=== PATIENT | female | born 1975 | race Caucasian/White ===

== ENCOUNTER 2025-02-21 13:48 | Inpatient (IN) ==
--- NOTE | 2025-02-21 14:12 | Emergency Department Note ---
Impression & Plan Symptomatic anemia, Vaginal bleeding, Near syncope ED Provider Note NAME: JESUS ALBERTO SANCHEZ AGE: 49 SEX: F : 1975 ARRIVES VIA: Walk-In INFORMANT: Patient, ED PROVIDER(S): Triston Yousif DO CHIEF COMPLAINT: Weakness HPI: The patient is a 49-year-old female who presented to the emergency department at the request of her primary care physician. The patient was noticing that she was having a much heavier period than usual. The patient does normally take oral anticoagulants because of a history of factor V. The patient was seen at an outside facility yesterday. She was noted to have a very low hemoglobin but her vital signs were stable and the patient ultimately was discharged to home. She called her family doctor today and was instructed to come to our emergency department for further evaluation. The patient complains of generalized weakness as well as near syncope. She denies having any chest pain or difficulty breathing. She last took her oral anticoagulant yesterday. ROS: See above HPI for pertinent positives & negatives. A total of 10 systems reviewed and were otherwise negative. PAST MEDICAL HISTORY: See Below PAST SURGICAL HISTORY: See Below FAMILY HISTORY: See Below SOCIAL HISTORY: See Below HOME MEDICATIONS: See Below ALLERGIES: See Below VITALS: See Below PHYSICAL EXAMINATION: GENERAL: Patient is awake alert in no acute distress patient is resting comfortably and showing no signs of anxiety EYES: The conjunctivae are clear. The pupils are round and reactive. EARS, NOSE, MOUTH AND THROAT: The nose is without any evidence of any deformity. NECK: The neck is nontender and supple. RESPIRATORY: Normal respiratory effort is noted there is no evidence of wheezing rhonchi or rales CARDIOVASCULAR: Regular rate and rhythm noted there no murmurs rubs or gallops normal S1 normal S2. GASTROINTESTINAL: The abdomen is soft. Abdomen is nontender. MUSCULOSKELETAL/EXTREMITIES: There is no evidence of gross deformity full range of motion is noted in the hips and shoulders. SKIN: There is no obvious evidence of any rash. There are no petechiae, pallor or cyanosis noted. NEUROLOGIC: Patient is awake alert and oriented x3 MEDICAL DECISION MAKING: The patient is a 49-year-old female who presented to the emergency department for near syncope. 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 The patient was seen at [facility] last evening. She was found to be anemic but was able to be discharged home. She followed up with her doctor and was sent to our emergency department today for further evaluation as well as possible blood transfusion. I discussed the patient's laboratory and radiographic studies with her. Vital signs are reassuring but her hemoglobin is still in the 7 range. She is very symptomatic with standing up. I do feel that she may be a candidate for blood transfusion at this time. I discussed her condition with the on-call [facility]. They have agreed to evaluate the patient in the emergency department for further management and disposition. The patient's previous hemoglobin was over 10. Triage Nursing notes reviewed. Prior medical records reviewed Vital Signs: reviewed and remarkable for no significant abnormalities Differential diagnosis: Infection, dehydration, metabolic abnormality, hypo/hyperglycemia, electrolyte disturbance, anemia, hypoxia, cardiac sources, intracerebral event, toxicologic, neurologic, as well as other pathologies. ER treatment provided: See below Diagnostics interpreted by me: ECG: EKG was obtained at emergency department. My interpretation is normal sinus rhythm at 84 bpm. There is no ectopy. There is no acute ST segment abnormalities noted. QTc was 439 ms. Cardiac Monitoring: An order was placed for continuous cardiac monitoring. The monitor shows a rate of 79 bpm with sinus rhythm. Laboratory studies: As stated above and show below. Imaging studies: See below. Radiographic imaging was reviewed by myself Consultation(s): I discussed this case with the Ashly who is on-call for the [facility]. Past Med/Surg History Problem List (Updated 02/21/25 @ 16:07 by Triston Yousif DO) Near syncope (Acute) Vaginal bleeding (Acute) Symptomatic anemia (Acute) Medical History (Updated 02/21/25 @ 16:07 by Triston Yousif DO) DVT (deep venous thrombosis) Factor V deficiency Social History Smoking Status: Never smoker Preferred Language: Emirati Feels Safe at Home: Yes Allergies Allergies Allergy/AdvReac Type Severity Reaction Status Date / Time No Known Allergies Allergy Unverified 02/21/25 16:03 Home Meds Home Medications Medication Instructions Recorded Confirmed apixaban 5 mg tablet 5 mg PO BID 02/21/25 02/21/25 budesonide-formoterol HFA 80 1 inh inhalation BID 02/21/25 02/21/25 mcg-4.5 mcg/actuation aerosol inhaler norethindrone acetate 5 mg tablet 5 mg PO QAM 02/21/25 02/21/25 Results & Data (ED) Vital Signs Vital Signs - 24 hr 02/21/25 13:56 02/21/25 14:32 02/21/25 14:32 Temperature 36.4 C L Temperature Source Temporal Artery Scan Pulse Rate 92 H 85 Pulse Rate [Right Finger] 86 Respiratory Rate 17 18 18 Respiratory Effort / Characteristics Non-Labored Spontaneous Respiratory Depth Normal Respiratory Pattern Regular Blood Pressure 117/77 Blood Pressure [Right Arm] 114/77 Blood Pressure Mean 90 Blood Pressure Mean [Right Arm] 89 Pulse Oximetry 100 100 100 Oxygen Delivery Method Room Air Room Air Room Air Sepsis Recent Fever Within 48 Hours No Sepsis New/Unexplained Change in Mental Status N/A Sepsis Action Taken by Nursing No Action Required 02/21/25 15:11 Temperature Temperature Source Pulse Rate 79 Pulse Rate [Right Finger] Respiratory Rate Respiratory Effort / Characteristics Respiratory Depth Respiratory Pattern Blood Pressure Blood Pressure [Right Arm] Blood Pressure Mean Blood Pressure Mean [Right Arm] Pulse Oximetry Oxygen Delivery Method Sepsis Recent Fever Within 48 Hours Sepsis New/Unexplained Change in Mental Status Sepsis Action Taken by Snf Medications Current Medication List: was personally reviewed by me Laboratory Data Attestation: I reviewed the patient's lab results. 02/21/25 14:20 02/21/25 14:20 Lab Results 02/21/25 02/21/25 Range/Units 14:20 14:28 WBC 5.26 (4.8-10.8) K/ul RBC 3.82 L (4.20-5.40) M/uL Hgb 7.6 L (12.0-16.0) g/dl POC Hgb 8.8 L (12.0-16.0) g/dl Hct 25.6 L (37.0-47.0) % POC Hct 26 L (37-47) % MCV 67.0 L (80.0-100.0) fL MCH 19.9 L (25.0-34.0) pg MCHC 29.7 L (32.0-36.0) g/dL RDW Std Deviation 39.9 (36.4-46.3) fL RDW Coeff of Karen 16.7 H (11.5-14.5) % Plt Count 285 (130-400) K/uL MPV 9.7 (9.4-12.4) fL Immature Gran % (Auto) 0.2 % Neut % (Auto) 59.7 % Lymph % (Auto) 20.3 % Grainger % (Auto) 8.6 % Eos % (Auto) 9.3 % Baso % (Auto) 1.9 % Neut # (Auto) 3.14 (1.40-6.50) K/uL Lymph # (Auto) 1.07 L (1.20-3.40) K/uL Grainger # (Auto) 0.45 (0.11-0.59) K/uL Eos # (Auto) 0.49 (0.00-0.50) K/uL Baso # (Auto) 0.10 (0.00-0.20) K/uL Immature Gran # (Auto) 0.01 (0.01-0.20) K/uL Polychromasia 1+ Microcytosis Present Ovalocytes 2+ PT 10.3 (9.0-12.0) Seconds INR 1.0 (0.9-1.1) APTT 20 L (21-31) Seconds PTT Ratio 0.7 POC Sodium 143 (135-144) mmol/L Sodium 140 (136-145) mmol/L POC Potassium 3.4 (3.3-5.0) mmol/L Potassium 3.4 L (3.5-5.1) mmol/L POC Chloride 104 (101-112) mmol/L Chloride 107 (98-107) mmol/L Carbon Dioxide 27 (21-32) mmol/L POC Total CO2 24 (24-31) mmol/L Anion Gap 6 (3-11) POC Anion Gap 19.0 (16-25) mmol/L POC BUN 6 L (7-18) mg/dl BUN 8 (6-23) mg/dl Creatinine 0.79 (0.6-1.2) mg/dl POC Creatinine 1.0 (0.6-1.3) mg/dl Est Cr Clr Drug Dosing 87.6 ml/min eGFR 92.79 BUN/Creatinine Ratio 10.1 (10-20) Glucose 92 (70-99(Fasting)) mg/dl POC Glucose (other) 89 (70-99) mg/dl Calcium 8.5 L (8.6-10.3) mg/dl POC Ioniz Calcium Marivel 1.08 L (1.12-1.32) mmol/l Total Bilirubin 0.4 (0.2-1.0) mg/dl AST 20 (13-39) U/L ALT 20 (7-52) U/L Alkaline Phosphatase 28 L (34-104) U/L Troponin I High Sens < 2.3 (0-14) pg/ml Total Protein 6.7 (6.0-8.3) gm/dl Albumin 3.9 (3.4-5.0) gm/dl Globulin 2.8 (2.5-4.0) gm/dl Albumin/Globulin Ratio 1.4 (0.9-2) Lipase 28 (11-82) U/L HCG, Qual Negative (Negative) Imaging Data Attestation: I personally reviewed and interpreted this imaging study as follows: My Impression: 1 view chest x-ray was obtained in the emergency department. My interpretation is no free air or definite infiltrate, final report below. Radiologist's Impression: Chest X-Ray 02/21/25 14:01 XR chest 1V portable CLINICAL HISTORY: Chest pain, nonspecific COMPARISON STUDY: None FINDINGS: Heart size and pulmonary vasculature are normal. No consolidation or pleural effusion. No pneumothorax. IMPRESSION: No acute findings. ACT 112: Negative or not required by law. Electronically signed by: Stiven Parker M.D. 02/21/2025 3:02 PM Discharge Plan Visit Data Chief Complaint: Abnormal Labs/Diagnostic Testing Stated Complaint: CHECK BLOOD COUNT, SEEN 02/20 AT [facility] ED Provider: Triston Yousif Discharge Problem: Symptomatic anemia, Vaginal bleeding, Near syncope Patient Disposition: Being Evaluated by Hospitalist Condition: Fair Forms Stand Alone Forms: My [facility] Prescriptions Prescriptions: No Action norethindrone acetate 5 mg tablet 5 mg PO QAM budesonide-formoterol 80-4.5 mcg/actuation HFA aerosol inhaler 1 inh INHALATION BID apixaban 5 mg Tablet 5 mg PO BID Referrals Referrals: PCP,NO [Primary Care Provider] -
[2025-02-21 14:43] LABS: Hematocrit (blood only) 25.6 % (37.0-47.0); Hemoglobin 7.6 g/dl (12.0-16.0); Immature Granulocytes # (auto) 0.01 K/uL (0.01-0.20); Immature Granulocytes % (auto) 0.2 %; Mean Corpuscular Hemoglobin 19.9 pg (25.0-34.0); Mean Corpuscular Volume 67.0 fL (80.0-100.0); RDW Standard Deviation 39.9 fL (36.4-46.3); Red Blood Count 3.82 M/uL (4.20-5.40); White Blood Count 5.26 K/ul (4.8-10.8)
[2025-02-21 14:50] LABS: Platelet Count 285 K/uL (130-400)
[2025-02-21 14:59] LABS: Alanine Aminotransferase 20 U/L (7-52); Albumin Globulin Ratio 1.4 (0.9-2); Albumin Level 3.9 gm/dl (3.4-5.0); Alkaline Phosphatase 28 U/L (34-104); Anion Gap 6 (3-11); Bilirubin,Total 0.4 mg/dl (0.2-1.0); Blood Urea Nitrogen 8 mg/dl (6-23); Calcium 8.5 mg/dl (8.6-10.3); Carbon Dioxide 27 mmol/L (21-32); Chloride 107 mmol/L (98-107); Creatinine Clr Calc Pharmacy 87.6 ml/min; Globulin 2.8 gm/dl (2.5-4.0); Glucose 92 mg/dl (70-99(Fasting)); Lipase 28 U/L (11-82); Potassium 3.4 mmol/L (3.5-5.1); Sodium 140 mmol/L (136-145); Total Protein 6.7 gm/dl (6.0-8.3)
--- NOTE | 2025-02-21 15:03 | XRay Report ---
XR chest 1V portable CLINICAL HISTORY: Chest pain, nonspecific COMPARISON STUDY: None FINDINGS: Heart size and pulmonary vasculature are normal. No consolidation or pleural effusion. No p neumothorax. IMPRESSION: No acute findings. ACT 112: Negative or not required by law. Electronically signed by: Stiven Parker M.D. 02/21/2025 3:02 PM
[2025-02-21 15:13] LABS: INR 1.0 (0.9-1.1); Partial Thromboplastin Time 20 Seconds (21-31); Prothrombin Time 10.3 Seconds (9.0-12.0)
[2025-02-21 15:23] LABS: Microcytosis Present; Ovalocytes 2+; Polychromasia 1+
[2025-02-21 15:24] LABS: Pregnancy Test, Serum Negative (Negative)
--- NOTE | 2025-02-21 15:40 | Electrocardiogram Report ---
Test Reason : Blood Pressure : */* mmHG Vent. Rate : 84 BPM Atrial Rate : 84 BPM P-R Int : 126 ms QRS Dur : 76 ms QT Int : 372 ms P-R-T Axes : 40 47 37 degrees QTcB Int : 439 ms Normal sinus rhythm Low voltage QRS Nonspecific ST abnormality Abnormal ECG No previous ECGs available Confirmed by Triston Celeste ([id number]) on 02/21/2025 3:40:29 PM Referred By: Confirmed By: Triston Celeste
--- NOTE | 2025-02-21 16:22 | History & Physical Report ---
Date of Service February 21, 2025 Assessment & Plan (1) Menorrhagia: (2) Symptomatic anemia: (3) Factor V deficiency: (4) DVT (deep venous thrombosis): Plan Ms. Morejon is a 49 year old [employer] female who presented to the ED with weakness and a low Hgb of 7.6. She has a complex hematological history. She underwent a hernia repair 5 months ago and developed her first DVT postop and was started on Eliquis for a few months. Unfortunately she developed a subsequent DVT on March 19 and was restarted on Eliquis. Separately she has been on control pills (norethindrone acetate) for 5 months as well for persistent menorrhagia. Additionally she was diagnosed with factor V Leiden last Thursday as well. She reports that she started her menses on Sunday 02/18 and reportedly is bleeding heavier than normal with reports of saturation of 3-4 pads every few hours. She was evaluated at the [facility] last evening and her Hgb was 7.7. A TVUS was performed revealing leiomyomas. Pt will be admitted for further evaluation and management of her menorrhea, symptomatic anemia, coagulopathy. Will trend hemoglobin, add anemia panel to assess iron deficiency, replace potassium and will consult hematology and gynecology for insight. Symptomatic anemia: Likely ISO of menorrhagia/vaginal bleeding. Patient has been dealing with this for a few months Takes BCP's for the last 5 months given increased bleeding during menses Hemoglobin currently 7.6; baseline 10-12; repeat Hgb 7.1 Has an appointment with gynecology on Thursday regarding possibility of having a hysterectomy Discussed on the phone with Dr. Chavarria with gynecology. 1UPRBC ordered. Repeat Hgb 2300. Reportedly bleeding 3-4 pads every few hours over the past few days with a lot of clots Was seen at [facility] on 02/20 in the evening; TVUS performed revealing leiomyomas Type and screen completed; Blood consent obtained Hold anticoagulation; Teds and SCDs for now Anemia panel ordered NPO post MN Consult hematology and gynecology Factor V Leiden Deficiency: Recently diagnosed last week Does not follow with hematology Hematology consult given complicating factors of recurrent clots and bleeding may need to consider FFP given Factor V; however need to consider hypercoagulable state with reccurent DVT 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 Hold anticoagulation for now given menorrhagia and symptomatic anemia Hematology consult Hypokalemia: Serum K+ 3.4; replace with 40 PO and trend in AM No ectopy on monitor . Disposition: PCP: Dr. Christian Meneses; private practice Code status: Full Code VTE Prophylaxis: Teds and SCDs for now I spent a total of 82 minutes coordinating, documenting, and providing care for this patient excluding time spent inthe performance of separately billed services or time spent by another provider/QHP. History of Present Illness Chief Complaint: Symptomatic anemia Primary Care Provider: NO PCP Ms. Morejon is a 49 year old [employer] female who presented to the ED with weakness and a low Hgb of 7.6. She has a complex hematological history. She underwent a hernia repair 5 months ago and developed her first DVT postop and was started on Eliquis for a few months. Unfortunately she developed a subsequent DVT on March 19 and was restarted on Eliquis. Separately she has been on control pills (norethindrone acetate) for 5 months as well for persistent menorrhagia. additionally she was diagnosed with factor V Leiden last Thursday as well. She reports that she started her menses on Sunday 02/18 and reportedly is bleeding heavier than normal with reports of saturation of 3-4 pads every few hours. She was evaluated at the [facility] last evening and her Hgb was 7.7. A TVUS was performed revealing leiomyomas. . Per patient and EMR review patient is to have a follow-up appointment with her lay midwife on Thursday as they have been having conversation about a possible hysterectomy given all the complication she has been having around her menses. In the ED today her hemoglobin is 7.6; baseline from 2023 is 10-12. hCG negative, otherwise labs unremarkable. Slight hypokalemia 3.4. Patient denies tobacco, alcohol or recreational drug use. Patient denies headache, shortness of breath, chest pain, abdominal pain or tenderness, nausea, vomiting, diarrhea, recent falls or trauma. On examination, patient is AO x 4, well-nourished and in no acute distress. She is able to speak in complete sentences without desaturation and does not appear to be winded. She is normotensive. She does report feeling dizzy when she does ambulate. Pt will be admitted for further evaluation and management of her menorrhea, symptomatic anemia, coagulopathy. Type and cross has been completed and consent obtained. Will trend hemoglobin, add anemia panel to assess iron deficiency, replace potassium and will consult hematology and gynecology for insight. Please see A/P for further details. Allergies Allergy/AdvReac Type Severity Reaction Status Date / Time No Known Allergies Allergy Unverified 02/21/25 16:03 Home Medications Medication Instructions Recorded Confirmed Type apixaban 5 mg tablet 5 mg PO BID 02/21/25 02/21/25 History budesonide-formoterol HFA 80 1 inh inhalation BID 02/21/25 02/21/25 History mcg-4.5 mcg/actuation aerosol inhaler norethindrone acetate 5 mg tablet 5 mg PO QAM 02/21/25 02/21/25 History Past Med/Surg History Problem List (Updated 02/21/25 @ 17:21 by MIKE Martinez) Menorrhagia Near syncope (Acute) Vaginal bleeding (Acute) Symptomatic anemia (Acute) Medical History DVT (deep venous thrombosis) Factor V deficiency Social History Smoking Status: Never smoker Preferred Language: Vincentian Feels Safe at Home: Yes Review of Systems Review of Systems: Neuro: (-) Falls, trauma, slurred speech HEENT: (-) SIN, (+) dizziness, (-) dysphagia, visual or auditory changes CV: (-) CP, palpitations, swelling Resp: (-) SOB GI: (-) appetite changes, N/V/D, bowel changes : (-) urinary changes Skin: (-) rashes Psych: (-) anxiety, depression Physical Exam Physical Exam: Neuro: AAOx4, PERRLA, no aphagia, memory changes, CNII-XII grossly intact HEENT: head normocephalic, moist mucus membranes CV: S1/S2, (-) M/G/R, (-) edema, cap refill < 3 seconds Resp: Lungs CTA in all padilla. On RA GI: Abdomen S/NT/ND, Ax4 bowel sounds, (-) CVA tenderness Musculoskeletal: 5/5 B/L UE strength, 5/5 B/L LE strength. No gait disturbance Skin: (-) rashes , (-) erythema. Psych: euthymic mood Results & Data Results & Data Vital Signs (Past 12 Hours) Vital Signs Temp Pulse Pulse Resp BP BP Pulse Ox 02/21/25 16:00 80 16 114/77 99 02/21/25 15:11 79 02/21/25 14:32 85 18 100 02/21/25 14:32 86 18 114/77 100 02/21/25 13:56 36.4 C L 92 H 17 117/77 100 O2 Del Method 02/21/25 16:00 Room Air 02/21/25 15:11 02/21/25 14:32 Room Air 02/21/25 14:32 Room Air 02/21/25 13:56 Room Air Laboratory Results Short CBC 02/21/25 Range/Units 14:20 WBC 5.26 (4.8-10.8) K/ul Hgb 7.6 L (12.0-16.0) g/dl Hct 25.6 L (37.0-47.0) % Plt Count 285 (130-400) K/uL BMP 02/21/25 14:20 Sodium 140 Potassium 3.4 L Chloride 107 Carbon Dioxide 27 BUN 8 Creatinine 0.79 Glucose 92 Calcium 8.5 L Liver Function 02/21/25 Range/Units 14:20 Total Bilirubin 0.4 (0.2-1.0) mg/dl AST 20 (13-39) U/L ALT 20 (7-52) U/L Alkaline Phosphatase 28 L (34-104) U/L Albumin 3.9 (3.4-5.0) gm/dl Diagnostic Findings Chest X-Ray 02/21/25 14:01 XR chest 1V portable CLINICAL HISTORY: Chest pain, nonspecific COMPARISON STUDY: None FINDINGS: Heart size and pulmonary vasculature are normal. No consolidation or pleural effusion. No pneumothorax. IMPRESSION: No acute findings. ACT 112: Negative or not required by law. Electronically signed by: Stiven Parker M.D. 02/21/2025 3:02 PM Code Status & VTE Plan Code Status Full Code in the event of cardiac or respiratory arrest VTE Prophylaxis Plan VTE Prophylaxis will be ordered: Yes Supervising Physician Co-Signing Physician Notes Attending Addendum: Case reviewed with the advanced practitioner. I have personally performed a history and physical examination on the patient. I have reviewed the advanced practitioner's documentation on the date of service referenced in note, and I agree with, and take responsibility for the plan of care. please refer to her notes for full details patient seen and examined, records reviewed by myself as well on exam, patient seen resting in bed, comfortable states she feels ok overall no chest pain, dyspnea, palpitations, dizziness still having some vaginal spotting, no abdominal pain no other symptoms VS noted and reviewed oriented x 3, not in distress, speaks in sentences with no effort nor accessory muscle use normal rate, regular rhythm, no murmurs clear breath sounds bilaterally non distended, soft, nontender no bipedal edema, erythema, warmth no neuro deficits all labs, imaging noted and reviewed ASSESSMENT AND PLAN> ACUTE BLOOD LOSS ANEMIA SECONDARY TO VAGINAL BLEEDING, LEIOMYOMA ON ELIQUIS FOR RECURRENT, DVT FACTOR V DEFICIENCY Hg 7.6--> 7.1--> repeat Hg at 11pm hold Eliquis, consult Vascular Surgery for evaluation for IVC filter placement, Hematology also consulted on Norethindrone, Client Account Assistant consulted other diagnoses and plan of care as per advanced practitioner's notes I spent a total of 45 minutes coordinating, documenting, and providing care for this patient, excluding time spent in the performance of separately billed services or time spent by another provider/QHP. Jose Martin MD
[2025-02-21 17:24] LABS: Iron 271 mcg/dl (35-150); Transferrin 298 mg/dl (200-360)
[2025-02-21 17:27] LABS: Reticulocytes # 0.070 10^6/uL (0.020-0.100)
[2025-02-21 17:45] LABS: Ferritin 8.6 ng/ml (8-388)
[2025-02-21 17:45] LABS: Hematocrit (blood only) 24.4 % (37.0-47.0); Hemoglobin 7.1 g/dl (12.0-16.0)
[2025-02-21] MEDS: POTASSIUM CHLORIDE CRTAB 20 MEQ TABCR PO STA (18:12)
[2025-02-21 18:26] LABS: Folate (Folic Acid),Ser orPlas 19.82 ng/ml (>5.38)
[2025-02-21 18:27] LABS: Vitamin B12 528.0 pg/ml (180-914)
[2025-02-21] MEDS ORDERED: SODIUM CHLORIDE 0.9% 100 ML IV PRN (18:47)
[2025-02-21] MEDS ORDERED: ONDANSETRON INJ 2 MG/ML 2 ML VIAL IV PRN (19:22)
[2025-02-21] MEDS ORDERED: ALUMINUM/MAGNESIUM SUSP 30 ML UDC PO PRN (19:22)
[2025-02-21] MEDS ORDERED: ACETAMINOPHEN 325 MG TAB PO PRN (19:22)
[2025-02-21] MEDS ORDERED: MAGNESIUM HYDROXIDE SUSP 30 ML UDC PO PRN (19:22)
[2025-02-21] MEDS ORDERED: POLYETHYLENE (MIRALAX) 17 GM PACK PO PRN (19:22)
--- NOTE | 2025-02-21 19:42 | OB/GYN Consultation ---
Date of Consultation February 21, 2025 Assessment & Plan (1) Menorrhagia: Hold Kelvin (2) Near syncope: (3) Vaginal bleeding: Keep appointment with Dr. Wolfe for surgical consultation (4) Symptomatic anemia: Transfuse 1 unit PRBC's Present on Admission?: Yes Plan Discussed withhospitalist History of Present Illness Reason for Consultation: gynecologist bleeding Requesting Physician: Jose Martin MD Attending Physician: Jose Martin MD History of Present Illness 49 F [id number] started bleeding this past Thursday and admitted with symptomatic ane luz and weakness. Patient was seen yesterday at [facility] for symptomatic anemia and vaginal bleeding. She was sent home. She presents with anemia to ER. She has an appointment with Dr Wolfe Thursday at [facility] for consultation for hysterectomy at [facility]. She denies lightheadedness or dizziness. No nausea or vomiting. Has eaten and is passing gas. Allergies Allergy/AdvReac Type Severity Reaction Status Date / Time No Known Allergies Allergy Unverified 02/21/25 16:03 Home Medications Medication Instructions Recorded Confirmed Type apixaban 5 mg tablet 5 mg PO BID 02/21/25 02/21/25 History budesonide-formoterol HFA 80 1 inh inhalation BID 02/21/25 02/21/25 History mcg-4.5 mcg/actuation aerosol inhaler norethindrone acetate 5 mg tablet 5 mg PO QAM 02/21/25 02/21/25 History Patient History Medical History DVT (deep venous thrombosis) Factor V deficiency Social History Smoking Status: Never smoker Preferred Language: Sammarinese Feels Safe at Home: Yes Review of Systems Review of Systems: All systems reviewed & are unremarkable except as noted in HPI & below Physical Exam Constitutional: WD/WN, vitals as above Eyes: PERRL, conjunctivae normal, anicteric sclerae ENMT: external ear and nose normal, oropharynx normal Respiratory: normal respiratory effort Cardiovascular: Rate/Rhythm: regular rate and regular rhythm Gastrointestinal (Abdomen): Inspection/Auscultation: abdomen normal to inspection Musculoskeletal: Extremities: extremities normal to inspection Neurologic: patellar DTR's 2+ bilat, sensation intact Psychiatric: A+Ox3, euthymic affect Results & Data Vital Signs (Past 12 Hours) Vital Signs Temp Pulse Pulse Pulse Resp BP BP 02/21/25 18:48 92 H 02/21/25 18:30 76 15 101/68 02/21/25 18:03 78 15 113/69 02/21/25 16:00 80 16 114/77 02/21/25 15:11 79 02/21/25 14:32 85 18 02/21/25 14:32 86 18 114/77 02/21/25 13:56 36.4 C L 92 H 17 117/77 Pulse Ox O2 Del Method 02/21/25 18:48 02/21/25 18:30 100 Room Air 02/21/25 18:03 100 Room Air 02/21/25 16:00 99 Room Air 02/21/25 15:11 02/21/25 14:32 100 Room Air 02/21/25 14:32 100 Room Air 02/21/25 13:56 100 Room Air Laboratory Results Laboratory Results - last 72 hr 02/21/25 02/21/25 02/21/25 14:20 14:28 17:19 WBC 5.26 RBC 3.82 L Hgb 7.6 L 7.1 L POC Hgb 8.8 L Hct 25.6 L 24.4 L POC Hct 26 L MCV 67.0 L MCH 19.9 L MCHC 29.7 L RDW Std Deviation 39.9 RDW Coeff of Karen 16.7 H Plt Count 285 MPV 9.7 Immature Gran % (Auto) 0.2 Neut % (Auto) 59.7 Lymph % (Auto) 20.3 [place] % (Auto) 8.6 Eos % (Auto) 9.3 Baso % (Auto) 1.9 Reticulocyte % (Auto) 1.72 Neut # (Auto) 3.14 Lymph # (Auto) 1.07 L [place] # (Auto) 0.45 Eos # (Auto) 0.49 Baso # (Auto) 0.10 Reticulocyte # 0.070 Immature Gran # (Auto) 0.01 Polychromasia 1+ Microcytosis Present Ovalocytes 2+ PT 10.3 INR 1.0 APTT 20 L PTT Ratio 0.7 POC Sodium 143 Sodium 140 POC Potassium 3.4 Potassium 3.4 L POC Chloride 104 Chloride 107 Carbon Dioxide 27 POC Total CO2 24 Anion Gap 6 POC Anion Gap 19.0 POC BUN 6 L BUN 8 Creatinine 0.79 POC Creatinine 1.0 Est Cr Clr Drug Dosing 87.6 eGFR 92.79 BUN/Creatinine Ratio 10.1 Glucose 92 POC Glucose (other) 89 Calcium 8.5 L POC Ioniz Calcium Marivel 1.08 L Iron 271 H Transferrin 298 Ferritin 8.6 Total Bilirubin 0.4 AST 20 ALT 20 Alkaline Phosphatase 28 L Troponin I High Sens < 2.3 Total Protein 6.7 Albumin 3.9 Globulin 2.8 Albumin/Globulin Ratio 1.4 Lipase 28 Vitamin B12 528 Folate 19.82 HCG, Qual Negative Blood Type A Positive Antibody Screen NEGATIVE Diagnostic Findings CT fibroid uterus (1) Menorrhagia Menorrhagia type: with regular cycle Qualified Code(s): N92.0 - Excessive and frequent menstruation with regular cycle
[2025-02-21] MEDS: ACETAMINOPHEN 325 MG TAB PO ONE (20:07)
[2025-02-22 01:06] LABS: Hematocrit (blood only) 25.7 % (37.0-47.0); Hemoglobin 7.6 g/dl (12.0-16.0)
[2025-02-22 07:43] LABS: Hematocrit (blood only) 27.1 % (37.0-47.0); Hemoglobin 7.9 g/dl (12.0-16.0); Mean Corpuscular Hemoglobin 19.9 pg (25.0-34.0); Mean Corpuscular Volume 68.3 fL (80.0-100.0); Platelet Count 258 K/uL (130-400); RDW Standard Deviation 41.3 fL (36.4-46.3); Red Blood Count 3.97 M/uL (4.20-5.40); White Blood Count 5.24 K/ul (4.8-10.8)
[2025-02-22 08:02] VITALS: O2SAT 98
[2025-02-22 08:04] LABS: Anion Gap 5.0 (3-11); Blood Urea Nitrogen 7.0 mg/dl (6-23); Calcium 8.3 mg/dl (8.6-10.3); Carbon Dioxide 25.0 mmol/L (21-32); Chloride 109.0 mmol/L (98-107); Creatinine Clr Calc Pharmacy 94.3 ml/min; Glucose 84.0 mg/dl (70-99(Fasting)); Potassium 4.1 mmol/L (3.5-5.1); Sodium 139.0 mmol/L (136-145)
--- NOTE | 2025-02-22 09:46 | Ultrasound Report ---
BILATERAL LOWER EXTREMITY VENOUS DOPPLER HISTORY: Acute pain and swelling of the right lower leg hx of right leg dvt, ?chronicity COMPARISON STUDY: None. FINDINGS: There is normal compressibility, flow, and augmentation within the right lower extremity de ep venous structures. Nonocclusive thrombus noted within the left common femoral vein extending for a length of 2.5 cm, cecily hnically age indeterminate and possibly chronic. No additional left-sided DVT identified. IMPRESSION: 1. Nonocclusive thrombus within the left common femoral vein. 2. No right-sided DVT. ACT 112: Negative or not required by law. Electronically signed by: Manny Giordano M.D. 02/22/2025 9:45 AM
[2025-02-22 11:17] VITALS: BP 99/66; RESP 18; TEMP 98.2
--- NOTE | 2025-02-22 12:29 | Discharge Summary ---
Date of Service February 22, 2025 Admission HPI Per Admitting Provider Ms. Morejon is a 49 year old Muslim female who presented to the ED with weakness and a low Hgb of 7.6. She has a complex hematological history. She underwent a hernia repair 5 months ago and developed her first DVT postop and was started on Eliquis for a few months. Unfortunately she developed a subsequent DVT on March 19 and was restarted on Eliquis. Separately she has been on control pills (norethindrone acetate) for 5 months as well for persistent menorrhagia. additionally she was diagnosed with factor V Leiden last Thursday as well. She reports that she started her menses on Sunday 02/18 and reportedly is bleeding heavier than normal with reports of saturation of 3-4 pads every few hours. She was evaluated at the [facility] last evening and her Hgb was 7.7. A TVUS was performed revealing leiomyomas. . Per patient and EMR review patient is to have a follow-up appointment with her photograph developer on Thursday as they have been having conversation about a possible hysterectomy given all the complication she has been having around her menses. In the ED today her hemoglobin is 7.6; baseline from 2023 is 10-12. hCG negative, otherwise labs unremarkable. Slight hypokalemia 3.4. Patient denies tobacco, alcohol or recreational drug use. Patient denies headache, shortness of breath, chest pain, abdominal pain or tenderness, nausea, vomiting, diarrhea, recent falls or trauma. On examination, patient is AO x 4, well-nourished and in no acute distress. She is able to speak in complete sentences without desaturation and does not appear to be winded. She is normotensive. She does report feeling dizzy when she does ambulate. Pt will be admitted for further evaluation and management of her menorrhea, symptomatic anemia, coagulopathy. Type and cross has been completed and consent obtained. Will trend hemoglobin, add anemia panel to assess iron deficiency, replace potassium and will consult hematology and gynecology for insight. Please see A/P for further details. Admission Exam Per Admitting Provider Neuro: AAOx4, PERRLA, no aphagia, memory changes, CNII-XII grossly intact HEENT: head normocephalic, moist mucus membranes CV: S1/S2, (-) M/G/R, (-) edema, cap refill < 3 seconds Resp: Lungs CTA in all padilla. On RA GI: Abdomen S/NT/ND, Ax4 bowel sounds, (-) CVA tenderness Musculoskeletal: 5/5 B/L UE strength, 5/5 B/L LE strength. No gait disturbance Skin: (-) rashes , (-) erythema. Psych: euthymic mood Principal Diagnosis Iron deficiency anemia Menorrhagia History of acute DVT Discharge Exam Constitutional: WD/WN, vitals as above, NAD, sitting up in bed, pleasant, conversing easily Respiratory: normal respiratory effort, lungs clear to auscultation, no wheeze, rales, rhonchi. Normal insp/exp effort, no accessory muscle use Cardiovascular: RRR, no murmur, no edema Vessels: no JVD or carotid bruit Chest: normal inspection of chest Abdomen: normal bowel sounds, soft, nontender, no hepatosplenomegaly Musculoskeletal: no cyanosis or clubbing, extremities motor strength 5/5 Skin: no rashes, warm and dry normal turgor Neurologic: PERRL, EOMI, accommodation nl, no face palsy, no dysarthria CN's II- XI intact bilaterally and moves all extremities Psychiatric: A+Ox3, euthymic affect Discharge Data Allergies Allergy/AdvReac Type Severity Reaction Status Date / Time No Known Allergies Allergy Unverified 02/21/25 16:03 Consultations 02/21/25 16:04 ED Decision to Admit Stat 02/21/25 16:58 Consult Hematology Routine 02/21/25 17:02 Consult Gynecology Routine 02/21/25 17:59 Consult Vascular Surgery Routine Ordered Studies 02/22/25 07:59 US venous duplex leg [US venous doppler LE BI] Routine Hospital Course (1) Menorrhagia: (2) Vaginal bleeding: (3) Symptomatic anemia: Plan Patient with a past medical history of acute DVT, factor V Leyden presented to the hospital with menorrhagia Patient had a provoked DVT on right lower extremity in August after hernia repair for which she was put on anticoagulation. Patient had another duplex done in January 17, 2025 which showed is indeterminate DVT on right common femoral vein. Patient developed symptomatic anemia, severe was not bleeding while on anticoagulation. Patient has a follow-up appointment coming up with [facility] for possible surgical evaluation. [facility] was consulted; they recommended holding Eliquis. 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 Patient previously did not have any duplex of the left leg; it is uncertain whether she developed the DVT during postsurgical period Several month ago or recently. I discussed in detail with patient regarding benefit/risks associated with blood thinners. I also discussed possibly placing IVC filter given the contraindication for DVT. I discussed risks associated with holding anticoagulation which could include recurrent DVT, Pulmonary embolism, cardiac arrest and . Patient did not want any further procedures, she wanted to go off anticoagulation until surgical management for the menorrhagia is done. I discussed symptoms of DVT/PE; urged them to seek immediate medical attention if any of those symptoms arise. Please note the above document was generated using voice recognition software. It may contain grammatical, syntax or spelling errors. Any formal questions or concerns about the content, text or information contained within the body of this dictation should be directly addressed to the provider for clarification Total Time Total Time Spent Total Time Spent (In Minutes): 45 Total Time Includes: Examination of the Patient, Discharge Planning, Medication Reconciliation, Communication With Other Providers and Other Discharge Plan Discharge Items Patient Disposition: Home - Self-Care Reason For Visit: SYMPTOMATIC ANEMIA Discharge Diagnosis: Iron Deficiency Anemia Condition on Discharge: Fair Activity: Resume your previous activity Non-emergency contact: Primary Care Provider Call non-emergency contact if: you have any medication questions and your symptoms worsen Follow-up/Referrals: PCP,NO [Primary Care Provider] - Diet: Regular Addtl Attending Provider Instructions: You were admitted to the hospital due to anemia. You were given blood transfusion during the hospitalization. For the time being, please do not take the blood thinner and the hormone replacement treatment. After you undergo surgery, you should be back on the blood thinner to prevent further blood clot. If you experience calf pain, calf swelling, shortness of breath, chest pain, episodes of passing out; seek medical attention immediately Pending Studies at Discharge: No Stand-Alone Forms: My [facility] [employer] Smoking Cessation Medications and DC Order Prescriptions: Continued budesonide-formoterol 80-4.5 mcg/actuation HFA aerosol inhaler 1 inh INHALATION BID Held apixaban 5 mg Tablet 5 mg PO BID Hold Instructions: Resume on 02/28/25. until surgery Discontinued norethindrone acetate 5 mg tablet 5 mg PO QAM Discharge Orders: Discharge Order (Routine); Ordered 02/22/25 Ordered By: Juarez Alexis Admission Data Admit Date/Time: 02/21/25 16:20 Attending Provider: Juarez Alexis Admit Provider: Jose Martin Primary Care Provider: PCP,NO Other Providers: Jose Martin; Racquel Cr; Srikanth Chavarria; Sumeet Del Valle
[2025-02-22 12:50] VITALS: PULSE 84
== END 2025-02-22 13:42 | disposition home or self-care (01) | DRG 760 ==
LOC: ED 13:48 → SUATTDRO 16:20 → EDINP 16:20 → 2W 19:22